=== PATIENT | male | born 1995 | race Caucasian/White ===

== ENCOUNTER → 2018-07-07 | Outpatient (CLI) | payer OTHER ==
[~2018-07-07] MED LIST: IBU600 PO; LOR5/325 PO; NO ROUTINE MEDS; OMEP-125 PO; SUCR1TAB85 PO
[2018-07-07 09:44] LABS: PLATELET COUNT, AUTOMATED 229 K/uL (150-450)
== END ==
LOC: LAB 09:21
PROVIDERS: ATTEND Internal Medicine
DX: R10.9 Unspecified abdominal pain (principal); M62.838 Other muscle spasm
CPT/HCPCS: 36415; 82040; 82150; 82247; 82310; 82374; 82435; 82565; 82947; 83690; 83735; 84075; 84132; 84155; 84295; 84443; 84450; 84460; 84520; 85025

== ENCOUNTER 2018-07-27 18:22 | Emergency (ER) | payer OTHER ==
--- NOTE | 2018-07-27 18:34 | ER Report ---
History and Physical Time Seen By MD: 18:34 HPI/ROS CHIEF COMPLAINT: Possibly infected right sided nose piercing HISTORY OF PRESENT ILLNESS: 23-year-old male patient presents to emergency room with complaint of possible infection of the right side nose piercing. Patient states that he switched out his piercing 3 weeks ago. He states that at that time he had no problems but over the next several days he states it became red, swollen, painful. Patient states she's noted purulent drainage at different times. He denies having any fevers, chills. Patient states that he has tried was robb his nose regularly with salt water. Patient states that he has become concerned because it appears swollen and he is afraid that it will disfigure his nose. Allergies: Coded Allergies: No Known Drug Allergies (Unverified , 07/27/18) Home Meds Active Scripts Cephalexin 500 Mg Tab (KEFLEX 500 MG TAB) 500 Mg Tablet, 500 MG PO Q6H, #28 TAB Prov:GAYE MARTÍNEZ 07/27/18 Mupirocin (Mupirocin) 2 % Oin.pf.reyes, 1 REYES TOP TID for 7 Days, #1 TUBE Prov:GAYE MARTÍNEZ 07/27/18 Discontinued Scripts Omeprazole (OMEPRAZOLE) 20 Mg Capsule.dr, 1 CAP PO QDAY, #15 CAP Prov:GAYE MARTÍNEZ 01/17/16 Sucralfate (CARAFATE) 1 Gm Tablet, 1 GM PO QID, #60 TAB Take before meals and at bedtime. Crush the tablet and mix with water before taking. Prov:GAYE MARTÍNEZ 01/17/16 Past Medical/Surgical History Patient has a past medical history of asthma, problems digesting food, left clavicle fracture. Patient has surgical history of tubes in ears. Reviewed Nurses Notes: Yes Hx Smoking: No Smoking Status: Current: Some Days Smoker Exposure to Second Hand Smoke?: No Constitutional Vital Sign - Last 24 Hours 07/27/18 18:46 Temp 98.2 Pulse 78 Resp 16 B/P (MAP) 132/93 Pulse Ox 96 O2 Delivery Room Air Physical Exam General appearance: Alert no distress. Respiratory: Chest is non tender, lungs are clear to auscultation. Cardiac: Regular rate and rhythm. Skin: Skin is erythematous, not warm to the touch, tender to palpation. DIFFERENTIAL DIAGNOSIS: After history and physical exam differential diagnosis was considered for cellulitis, allergic reaction to metal piercing. Medical Decision Making ED Course/Re-evaluation ED Course Patient was admitted to an exam room, history and physical were obtained. Differential diagnoses were considered. On examination lungs are clear, heart is regular, the skin on the right side of the nose is erythematous, not warm to touch, is tender to palpation. There is no purulent drainage on exam. I discussed findings with patient. We will go ahead and start him on Keflex as well as Bactroban. Patient did want to keep his piercing in place. Due to that we will go ahead and prescribe a topical as well as oral antibiotics. Patient is follow-up with his primary care provider with any concerns. He is return to emergency room if condition worsens. Patient verbalized understanding and agreement with plan. Decision to Disposition Date: Jul 27, 2018 Decision to Disposition Time: 18:49 Depart Departure Latest Vital Signs Vital Signs Date Time Temp Pulse Resp B/P (MAP) Pulse Ox O2 Delivery O2 Flow Rate FiO2 07/27/18 18:46 98.2 78 16 132/93 96 Room Air Impression: Primary Impression: Cellulitis Condition: Improved Disposition: HOME OR SELF-CARE Referrals: JEREMY LUJAN MD (PCP) New Scripts Cephalexin 500 Mg Tab (KEFLEX 500 MG TAB) 500 Mg Tablet 500 MG PO Q6H, #28 TAB Prov: GAYE MARTÍNEZ 07/27/18 Mupirocin (Mupirocin) 2 % Oin.pf.reyes 1 REYES TOP TID for 7 Days, #1 TUBE Prov: GAYE MARTÍNEZ 07/27/18 Patient Instructions: Cellulitis (ED) Additional Instructions: Keep wound clean. Change out to a different piercing. Follow up with [facility] in the next week. Return to the ER if condition worsens. Take medication as prescribed. Problem Qualifiers Primary Impression: Cellulitis Site of cellulitis: face Qualified Codes: L03.211 - Cellulitis of face GAYE MARTÍNEZ Jul 27, 2018 18:34
[2018-07-27 18:46] VITALS: BP 132/93
[2018-07-27] MEDS ORDERED: CEPH500T7 PO (18:48)
[2018-07-27] MEDS ORDERED: MUPI1OIN2 TOP (18:48)
== END 2018-07-27 19:00 | disposition home or self-care (01) ==
LOC: ER 18:41
DX: L03.211 Cellulitis of face (principal)
CPT/HCPCS: 99281